=== PATIENT | female | born 1960 | race Caucasian/White ===

== ENCOUNTER → 2017-06-17 | Outpatient (CLI) | payer OTHER ==
--- NOTE | 2017-06-17 16:53 | RAD ---
Three-view cervical spine radiographs 06/17/2017 Clinical history: Neck pain. AP, lateral and 2 AP odontoid digital radiographs of the cervical spine were obtained. Surgical clips are seen within the lower neck. Minimal lateral curvature of the cervical spine is seen convex to the right. There is mild straightening of the normal cervical lordosis. Degenerative changes consisting of vertebral endplate sclerosis and minimal anterior and posterior vertebral body osteophyte formation are seen involving the mid and lower cervical disc spaces. Degenerative changes are seen involving the uncovertebral and facet joints throughout the cervical disc spaces. No fracture or subluxation of the cervical vertebrae seen. No prevertebral soft tissue swelling is noted. Impression: Degenerative changes are seen involving the cervical spine as outlined above. No acute osseous abnormality is seen.
== END | disposition home or self-care (01) ==
LOC: DXRAD 07:39
PROVIDERS: ATTEND Nurse Practitioner Family
DX: M47.892 Other spondylosis, cervical region (principal)
CPT/HCPCS: 72040

== ENCOUNTER → 2017-06-22 | Outpatient (CLI) | payer OTHER ==
--- NOTE | 2017-06-22 13:09 | RAD ---
Bone densitometry scan, 06/22/2017: History: Osteopenia, ovarian failure The lumbar spine and right hip were examined utilizing a DEXA technique. The bone mineral density in the lumbar spine as measured from the L1-L4 levels is 0.87 g/sq cm. This yields a T score of -2.6 compatible with osteoporosis. The lumbar spine T score on the previous study of 11/15/2012 was -1.4. The total T score at the right hip is currently -1.8, compatible with osteopenia. This has worsened since the previous study at which time the right hip T score was -1.1. IMPRESSION: Worsening bone mineral density measurements as described above, with osteoporosis in the lumbar spine and osteopenia at the right hip.
== END | disposition home or self-care (01) ==
LOC: DXRAD 11:49
PROVIDERS: ATTEND Nurse Practitioner Family
DX: M85.88 Other specified disorders of bone density and structure, other site (principal)
CPT/HCPCS: 77080

== ENCOUNTER → 2017-06-23 | Outpatient (CLI) | payer OTHER ==
--- NOTE | 2017-06-23 08:52 | RAD ---
CT cervical spine without contrast 06/23/2017 at 0807 hours Indication: Pain and tenderness in the cervical spine. Comparison: Cervical spine radiograph 06/17/2017 Technique: Multiple axial CT images of the cervical spine were obtained without intravenous contrast. Coronal and sagittal reformats are provided. Findings: Alignment of the cervical spine is normal. Skull base is intact. Craniocervical junction is within normal limits. Atlantoaxial articulation is normal. Prevertebral soft tissues are normal. Paraspinal soft tissues are normal. There is a 9 mm hypodense nodule in the left thyroid gland. Right thyroid lobe appears surgically absent. Visualized portions of the lung apices are normal. No significant facet arthropathy or uncovertebral joint arthropathy. There is minimal posterior disc ossify complex at C3-C4 and C6-C7 without evidence for neural foraminal or spinal canal stenosis. Impression: 1. Mild degenerative changes of the cervical spine without significant neuroforaminal or spinal canal stenosis. 2. There is a 9 mm hypodense nodule in the left thyroid gland. PQRS Compliance Statement: One or more of the following individualized dose reduction techniques were utilized for this examination: 1. Automated exposure control 2. Adjustment of the mA and/or kV according to patient size 3. Use of iterative reconstruction technique
== END | disposition home or self-care (01) ==
LOC: CT 08:02
PROVIDERS: ATTEND Nurse Practitioner Family
DX: M47.892 Other spondylosis, cervical region (principal); E04.1 Nontoxic single thyroid nodule; Z98.890 Other specified postprocedural states
CPT/HCPCS: 72125

== ENCOUNTER → 2019-08-15 | Outpatient (CLI) | payer OTHER ==
--- NOTE | 2019-08-15 13:07 | RAD ---
EXAM: Dual energy x-ray absorptiometry (DEXA). HISTORY: Postmenopausal female presents for osteoporosis screening. COMPARISON: 06/22/2017. TECHNIQUE: Dual energy x-ray absorptiometry of the lumbar spine and right hip was performed. Calculation of bone mineral density based on standard deviations above or below the expected young adult normal value (T-score) was completed. FINDINGS: The average bone mineral density in the 1st through 4th lumbar vertebrae is 0.833 g/cmxcm, corresponding with a T-score of -2.9. There has been a 3.8% decrease in density of the lumbar spine compared to the prior study. The average total bone mineral density in the right hip is 0.715 g/cmxcm, corresponding with a T-score of -1.9. There has been a 3.2% decrease in density of the right hip compared to the prior study. The bone mineral density localized to the right femoral neck corresponds with a T-score of -2.5. IMPRESSION: 1. Osteoporosis measured at the lumbar spine and localized to the right femoral neck. 2. Osteopenia measured for the total right hip. . Note: Definitions established by the World [employer] Organization: 1. Normal: T-score is -1.0 or above. 2. Osteopenia: T-score is between -1.0 and -2.5 . 3. Osteoporosis: T-score is -2.5 or below. Electronically signed by: Susanne Gifford MD (08/15/2019 1:04 PM) [id number]
== END | disposition home or self-care (01) ==
LOC: DXRAD 11:35
PROVIDERS: ATTEND Internal Medicine Endocrinology, Diabetes & Metabolism
DX: M81.0 Age-related osteoporosis without current pathological fracture (principal); M85.88 Other specified disorders of bone density and structure, other site; Z85.3 Personal history of malignant neoplasm of breast; Z85.42 Personal history of malignant neoplasm of other parts of uterus
CPT/HCPCS: 77080